=== PATIENT | female | born 1965 | race Caucasian/White ===

== ENCOUNTER 2023-07-04 14:49 | Outpatient (CLI) | payer OTHER, BC, SELFPAY | END 2023-07-04 14:50 | disposition home or self-care (01) | PROVIDERS: PCP Family Medicine; Visit Provider Family Medicine | DX: M17.11 Unilateral primary osteoarthritis, right knee (principal); M25.561 Pain in right knee | CPT/HCPCS: 64454 ==

== ENCOUNTER 2023-08-29 13:57 | Outpatient (CLI) | payer OTHER, SELFPAY | END 2023-08-29 13:58 | disposition home or self-care (01) | LOC: INJ CL 13:58 | PROVIDERS: PCP Family Medicine; Visit Provider Family Medicine | DX: M17.11 Unilateral primary osteoarthritis, right knee (principal); M25.561 Pain in right knee | CPT/HCPCS: 64624; J2250; J3010 ==